=== PATIENT | male | born 1945 | race African-American/Black ===

== ENCOUNTER 2021-10-02 10:34 | Emergency (ER) | payer OTHER, MEDICAID ==
[~2021-10-02] VITALS: Ht 177.8 cm; Wt 109.0 kg
[~2021-10-02 10:34] MED LIST: AMLODIPINE; HUMALOG; LANTUS
[2021-10-02] MEDS ORDERED: TETRACAINE 0.5% OPHTH DROPS 4ML BOTHEYE ONE (11:15)
[2021-10-02 16:00] VITALS: BP 175/81
== END 2021-10-02 18:10 | disposition home or self-care (01) ==
LOC: ER 10:34
DX: H53.132 Sudden visual loss, left eye (principal); E11.319 Type 2 diabetes mellitus with unspecified diabetic retinopathy without macular edema; E11.65 Type 2 diabetes mellitus with hyperglycemia; E11.39 Type 2 diabetes mellitus with other diabetic ophthalmic complication; E11.36 Type 2 diabetes mellitus with diabetic cataract; H42 Glaucoma in diseases classified elsewhere; H26.9 Unspecified cataract; H54.11 Blindness, right eye, low vision left eye; R00.0 Tachycardia, unspecified; Z20.822 Contact with and (suspected) exposure to COVID-19; Z79.84 Long term (current) use of oral hypoglycemic drugs
CPT/HCPCS: 82962; 87426; 99285

== ENCOUNTER 2023-01-21 17:36 | Emergency (ER) | payer MEDICAID, OTHER ==
[~2023-01-21] VITALS: Ht 182.9 cm; Wt 81.0 kg
[2023-01-21] MEDS ORDERED: KETOROLAC 60MG/2ML VIAL IM NR (19:01)
[2023-01-21 19:37] VITALS: BP 138/78
== END 2023-01-21 20:00 | disposition home or self-care (01) ==
LOC: ER 17:36
DX: M25.551 Pain in right hip (principal); E11.9 Type 2 diabetes mellitus without complications; I10 Essential (primary) hypertension
CPT/HCPCS: 73521; 96372; 99283; J1885

== ENCOUNTER 2023-04-09 12:14 | Inpatient (IN) | payer OTHER, MEDICAID ==
[~2023-04-09] VITALS: Ht 182.9 cm; Wt 72.6 kg
[2023-04-09] MEDS ORDERED: SODIUM CHLORIDE 0.9% 1,000 ML IV ONE (13:30)
[2023-04-09 14:31] LABS: BASOPHILS % 0.8 % (0.0-2.0); HEMATOCRIT. 29.5 % (42.0-52.0); HEMOGLOBIN. 9.7 g/dL (14.0-18.0); LYMPHOCYTES % 14.8 % (20.0-50.0); MEAN CORPUSCULAR HEMOGLOBIN 27.5 pg (28.0-32.0); MEAN CORPUSCULAR HGB CONC 32.8 g/dL (31.0-37.0); MEAN CORPUSCULAR VOLUME 83.9 fL (80.0-94.0); MEAN PLATELET VOLUME 6.3 fl (7.4-10.4); MONOCYTES % 7.7 % (2.0-8.0); NEUTROPHILS % 74.7 % (40.0-76.0); PLATELET 538 x1000/uL (130-400); RED BLOOD CELL COUNT 3.51 mill/uL (4.7-6.1); RED CELL DISTRIBUTION WIDTH 16.8 % (11.6-14.6)
[2023-04-09 14:32] LABS: CHLORIDE 107 mEq/L (98-107); INDEX HEMOLYSI 1 (1-3); INDEX ICTERIC 1 (1-4); INDEX LIPEMIC 1 (1-3); POTASSIUM 4.6 mEq/L (3.5-5.1); SODIUM 135 mEq/L (136-145)
[2023-04-09 14:43] LABS: ALANINE AMINOTRANSFERASE 24 IU/L (13-61); ALBUMIN 2.5 g/dL (3.4-5.0); ASPARTATE AMINOTRANSFERASE 20 IU/L (15-37); BILIRUBIN TOTAL 0.3 mg/dL (0.1-1.0); CARBON DIOXIDE 21 mEq/L (21-32); CREATININE 1.3 mg/dL (0.6-1.3); GLUCOSE 115 mg/dL (70-105); NT PRO B-TYPE NATRIURETIC PEP 839 pg/mL (5-125); PROTEIN TOTAL 7.9 g/dL (6.0-8.3); TROPONIN I HIGH SENSITIVITY 10 ng/L (<78); UREA NITROGEN BLOOD 20 mg/dL (7-21)
[2023-04-09 14:57] LABS: CALCIUM 5.3 mg/dL (8.5-10.1)
[2023-04-09] MEDS ORDERED: CALCIUM GLUCONATE 100MG/ML 10ML VIAL IV ONE (15:15)
[2023-04-09] MEDS ORDERED: ASPIRIN 325MG EC TABLET PO ONE (15:30)
[2023-04-09] MEDS ORDERED: ONDANSETRON HCL 4MG/2ML INJ IV PRN (17:30)
[2023-04-09] MEDS ORDERED: ACETAMINOPHEN 325MG TABLET PO PRN (17:30)
[2023-04-09 18:58] LABS: CLARITY URINE CLEAR (CLEAR); COLOR URINE YELLOW (YELLOW); GLUCOSE URINE NEGATIVE (NEGATIVE); KETONES URINE NEGATIVE (NEGATIVE); LEUKOCYTE ESTERASE URINE NEGATIVE (NEGATIVE); NITRITE URINE NEGATIVE (NEGATIVE); OCCULT BLOOD URINE NEGATIVE (NEGATIVE); PH URINE 5.5 (4.5-8.0); PROTEIN URINE 1+ (NEGATIVE); SPECIFIC GRAVITY URINE 1.007 (1.005-1.030); UROBILINOGEN URINE 0.2 E.U./dL (0.2-1.0)
[2023-04-09 18:59] LABS: WBC URINE NONE SEEN /hpf (0-2); YEAST URINE NONE SEEN
[2023-04-09 19:26] LABS: BACTERIA URINE TRACE; RBC URINE NONE SEEN /hpf (0-2); SQUAMOUS EPITHELIAL CELL URINE RARE /lpf (RARE/1+)
[2023-04-09 23:00] VITALS: BP 150/80; PULSE 92; RESP 20; TEMP 98.6
[2023-04-10] VITALS: BP 145/60; PULSE 100; RESP 18; TEMP 98.2
[2023-04-10 04:00] VITALS: BP 160/80; PULSE 90; RESP 18; TEMP 97.8
[2023-04-10 06:58] LABS: BASOPHILS % 0.8 % (0.0-2.0); EOSINOPHILS % 3.1 % (0.0-5.0); HEMATOCRIT. 26.6 % (42.0-52.0); LYMPHOCYTES % 21.6 % (20.0-50.0); MEAN CORPUSCULAR HEMOGLOBIN 28.4 pg (28.0-32.0); MEAN CORPUSCULAR VOLUME 83.3 fL (80.0-94.0); MEAN PLATELET VOLUME 6.6 fl (7.4-10.4); MONOCYTES % 8.1 % (2.0-8.0); NEUTROPHILS % 66.4 % (40.0-76.0); PLATELET 510 x1000/uL (130-400); RED BLOOD CELL COUNT 3.19 mill/uL (4.7-6.1); RED CELL DISTRIBUTION WIDTH 17.1 % (11.6-14.6); WHITE BLOOD COUNT 8.6 x1000/uL (4.5-11.0)
[2023-04-10 07:52] LABS: CHLORIDE 114 mEq/L (98-107); INDEX HEMOLYSI 1 (1-3); INDEX ICTERIC 1 (1-4); INDEX LIPEMIC 1 (1-3); POTASSIUM 4.2 mEq/L (3.5-5.1); SODIUM 138 mEq/L (136-145)
[2023-04-10 07:57] LABS: CARBON DIOXIDE 19 mEq/L (21-32); CREATININE 1.3 mg/dL (0.6-1.3); GLUCOSE 94 mg/dL (70-105); UREA NITROGEN BLOOD 15 mg/dL (7-21)
[2023-04-10 08:00] VITALS: BP 171/94; PULSE 105; RESP 20; TEMP 98
[2023-04-10] MEDS ORDERED: CLONIDINE 0.1MG TABLET PO PRN (08:00)
[2023-04-10] MEDS ORDERED: DEXTROSE 50% WATER 50ML SYRINGE IV PRN ×2 (08:00)
[2023-04-10] MEDS ORDERED: MAGNESIUM/ALUMINUM HYDROXIDE/SIMETHICONE 30ML UDC PO PRN (08:00)
[2023-04-10] MEDS ORDERED: HYDROCODONE/ACETAMINOPHEN 5/325MG TABLET PO PRN (08:00)
[2023-04-10] MEDS ORDERED: ONDANSETRON HCL 4MG/2ML INJ IV PRN (08:00)
[2023-04-10 08:35] LABS: CALCIUM 5.2 mg/dL (8.5-10.1)
[2023-04-10] MEDS: ENOXAPARIN 40MG/0.4ML SYR SUBCUT SCH (09:50)
[2023-04-10 12:00] VITALS: BP 145/73; PULSE 103; RESP 20; TEMP 98
[2023-04-10] MEDS: BLOOD SUGAR DIAGNOSTIC STRIP TEST SCH ×3 (12:54→21:00)
[2023-04-10] MEDS: INSULIN LISPRO 100 UNITS/ML SUBCUT SCH ×3 (13:04→21:00)
[2023-04-10] MEDS ORDERED: CALCIUM GLUCONATE 1,000 MG in DEXT 5% WATER 90 ML IV ONE (13:45)
[2023-04-10] MEDS ORDERED: CALCIUM GLUCONATE 1GM PREMIX 50 ML IV SCH (15:00)
[2023-04-10 16:00] VITALS: BP 125/67; PULSE 92; RESP 20; TEMP 98.1
[2023-04-10] MEDS: AMLODIPINE 10MG TABLET PO SCH (18:32)
[2023-04-10] MEDS: TAMSULOSIN HCL 0.4MG SR CAPSULE PO SCH (18:33)
[2023-04-10] MEDS ORDERED: TAMS-11 MT (18:36)
[2023-04-10 20:00] VITALS: BP 114/62; PULSE 102; RESP 18; TEMP 97.9
[2023-04-11] VITALS: BP 144/68; PULSE 101; RESP 20; TEMP 97.8
[2023-04-11 04:00] VITALS: BP 128/53; PULSE 95; RESP 20; TEMP 97.3
[2023-04-11] MEDS: OMEPRAZOLE 20MG CAPSULE EXTENDED RELEASE PO SCH (07:31)
[2023-04-11] MEDS: BLOOD SUGAR DIAGNOSTIC STRIP TEST SCH ×4 (07:31→21:00)
[2023-04-11] MEDS: INSULIN LISPRO 100 UNITS/ML SUBCUT SCH ×4 (07:45→21:00)
[2023-04-11 08:00] VITALS: BP 131/68; PULSE 101; RESP 20; TEMP 97.2
[2023-04-11 08:16] LABS: BASOPHILS % 0.8 % (0.0-2.0); EOSINOPHILS % 3.2 % (0.0-5.0); HEMATOCRIT. 25.1 % (42.0-52.0); HEMOGLOBIN. 8.4 g/dL (14.0-18.0); LYMPHOCYTES % 20.7 % (20.0-50.0); MEAN CORPUSCULAR HEMOGLOBIN 27.9 pg (28.0-32.0); MEAN CORPUSCULAR HGB CONC 33.3 g/dL (31.0-37.0); MEAN CORPUSCULAR VOLUME 83.7 fL (80.0-94.0); MEAN PLATELET VOLUME 6.5 fl (7.4-10.4); MONOCYTES % 9.4 % (2.0-8.0); NEUTROPHILS % 65.9 % (40.0-76.0); PLATELET 468 x1000/uL (130-400); RED CELL DISTRIBUTION WIDTH 17.2 % (11.6-14.6); WHITE BLOOD COUNT 8.8 x1000/uL (4.5-11.0)
[2023-04-11 08:26] LABS: CHLORIDE 111 mEq/L (98-107); INDEX HEMOLYSI 1 (1-3); INDEX ICTERIC 1 (1-4); INDEX LIPEMIC 1 (1-3); POTASSIUM 4.1 mEq/L (3.5-5.1); SODIUM 137 mEq/L (136-145)
[2023-04-11 08:38] LABS: ALANINE AMINOTRANSFERASE 20 IU/L (13-61); ALBUMIN 2.3 g/dL (3.4-5.0); ASPARTATE AMINOTRANSFERASE 14 IU/L (15-37); BILIRUBIN DIRECT < 0.1 mg/dL (0.0-0.2); BILIRUBIN TOTAL 0.5 mg/dL (0.1-1.0); CARBON DIOXIDE 19 mEq/L (21-32); CHOLESTEROL 131 mg/dL (<200); CREATININE 1.3 mg/dL (0.6-1.3); GLUCOSE 193 mg/dL (70-105); HDL CHOLESTEROL 44 mg/dL (40-59); LDL CHOLESTEROL 74 mg/dL (5-100); PHOSPHORUS 2.4 mg/dL (2.5-4.9); PROTEIN TOTAL 6.7 g/dL (6.0-8.3); T4 FREE 1.06 ng/dL (0.76-1.46); TRIGLYCERIDE 84 mg/dL (0-150); TROPONIN I HIGH SENSITIVITY 13 ng/L (<78); UREA NITROGEN BLOOD 16 mg/dL (7-21)
[2023-04-11 09:04] LABS: CALCIUM 5.3 mg/dL (8.5-10.1)
[2023-04-11] MEDS: ENOXAPARIN 40MG/0.4ML SYR SUBCUT SCH (09:06)
[2023-04-11] MEDS: TAMSULOSIN HCL 0.4MG SR CAPSULE PO SCH (09:06)
[2023-04-11] MEDS: AMLODIPINE 10MG TABLET PO SCH (09:06)
[2023-04-11] MEDS ORDERED: CALCIUM GLUCONATE 1GM PREMIX 50 ML IV NR (11:30)
[2023-04-11 12:00] VITALS: BP 138/65; PULSE 104; RESP 20; TEMP 97.3
[2023-04-11 16:00] VITALS: BP_SYST 139; BP_DIAS 27; BP_DIAS 69; PULSE 108; RESP 20; TEMP 96.9
[2023-04-11 20:00] VITALS: BP 128/63; PULSE 102; RESP 18; TEMP 99.7
[2023-04-12] VITALS: BP 141/72; PULSE 97; RESP 17; TEMP 98
[2023-04-12 04:00] VITALS: BP 142/71; PULSE 101; RESP 18; TEMP 98.4
[2023-04-12] MEDS: OMEPRAZOLE 20MG CAPSULE EXTENDED RELEASE PO SCH (06:15)
[2023-04-12] MEDS: BLOOD SUGAR DIAGNOSTIC STRIP TEST SCH ×5 (06:18→23:37)
[2023-04-12] MEDS: INSULIN LISPRO 100 UNITS/ML SUBCUT SCH ×4 (06:38→22:46)
[2023-04-12 07:25] LABS: BASOPHILS % 0.9 % (0.0-2.0); EOSINOPHILS % 3.6 % (0.0-5.0); HEMATOCRIT. 24.6 % (42.0-52.0); HEMOGLOBIN. 8.2 g/dL (14.0-18.0); LYMPHOCYTES % 20.1 % (20.0-50.0); MEAN CORPUSCULAR HEMOGLOBIN 27.8 pg (28.0-32.0); MEAN CORPUSCULAR HGB CONC 33.3 g/dL (31.0-37.0); MEAN CORPUSCULAR VOLUME 83.4 fL (80.0-94.0); MEAN PLATELET VOLUME 6.6 fl (7.4-10.4); MONOCYTES % 9.6 % (2.0-8.0); NEUTROPHILS % 65.8 % (40.0-76.0); PLATELET 459 x1000/uL (130-400); RED BLOOD CELL COUNT 2.95 mill/uL (4.7-6.1); RED CELL DISTRIBUTION WIDTH 17.3 % (11.6-14.6); WHITE BLOOD COUNT 8.4 x1000/uL (4.5-11.0)
[2023-04-12 08:00] VITALS: BP 122/58; PULSE 96; RESP 18; TEMP 98.1
[2023-04-12] MEDS: ENOXAPARIN 40MG/0.4ML SYR SUBCUT SCH (08:41)
[2023-04-12] MEDS: TAMSULOSIN HCL 0.4MG SR CAPSULE PO SCH (08:41)
[2023-04-12] MEDS: AMLODIPINE 10MG TABLET PO SCH (08:41)
[2023-04-12 08:58] LABS: CARBON DIOXIDE 21 mEq/L (21-32); GLUCOSE 172 mg/dL (70-105); INDEX HEMOLYSI 1 (1-3); INDEX ICTERIC 1 (1-4); INDEX LIPEMIC 1 (1-3); UREA NITROGEN BLOOD 14 mg/dL (7-21)
[2023-04-12 09:04] LABS: CHLORIDE 111 mEq/L (98-107); CREATININE 1.3 mg/dL (0.6-1.3); PHOSPHORUS 2.5 mg/dL (2.5-4.9); POTASSIUM 4.3 mEq/L (3.5-5.1); SODIUM 138 mEq/L (136-145)
[2023-04-12 09:14] LABS: CALCIUM 5.4 mg/dL (8.5-10.1)
[2023-04-12] MEDS ORDERED: CALCIUM GLUCONATE 100MG/ML 10ML VIAL IV ONE (09:45)
[2023-04-12] MEDS ORDERED: CALCIUM GLUCONATE 1GM PREMIX 50 ML IV NR (11:00)
[2023-04-12 12:00] VITALS: BP 128/60; PULSE 97; RESP 18; TEMP 97.6
[2023-04-12 16:00] VITALS: BP 117/64; PULSE 101; RESP 18; TEMP 97.9
[2023-04-12 20:00] VITALS: BP 122/52; PULSE 95; RESP 20; TEMP 97.7
[2023-04-13] VITALS: BP 111/64; PULSE 92; RESP 20; TEMP 97.5
[2023-04-13 00:16] VITALS: BP 111/64; PULSE 92; TEMP 97.5; O2SAT 96
[2023-04-13] MEDS ORDERED: FAMOTIDINE 20MG TABLET PO SCH (09:00)
[2023-04-13] MEDS ORDERED: CALCIUM 1250MG TABLET (500MG ELEMENTAL CALCIUM) PO SCH (09:00)
[2023-04-16 20:00] VITALS: BP 140/59; PULSE 73; RESP 17; TEMP 97.7
== END 2023-04-13 00:30 | disposition short-term general hospital (02) | DRG 73 ==
LOC: ER 12:14 → 8WST 16:48 → EDBEDREQTM 16:53 → EDBEDREQ 16:53
PROVIDERS: ADMIT Family Medicine Adult Medicine; ATTEND Family Medicine Adult Medicine
DX: G90.8 Other disorders of autonomic nervous system (principal); E43 Unspecified severe protein-calorie malnutrition; J98.11 Atelectasis; C79.89 Secondary malignant neoplasm of other specified sites; C61 Malignant neoplasm of prostate; H54.8 Legal blindness, as defined in USA; Z20.822 Contact with and (suspected) exposure to COVID-19; E11.9 Type 2 diabetes mellitus without complications; I10 Essential (primary) hypertension; D64.9 Anemia, unspecified; E83.51 Hypocalcemia; E78.00 Pure hypercholesterolemia, unspecified; Z68.21 Body mass index [BMI] 21.0-21.9, adult; Z86.73 Personal history of transient ischemic attack (TIA), and cerebral infarction without residual deficits; W18.30XA Fall on same level, unspecified, initial encounter; Y93.89 Activity, other specified; Y92.89 Other specified places as the place of occurrence of the external cause; Y99.8 Other external cause status
CPT/HCPCS: 36415; 70551; 71045; 72192; 73700; 80048; 80053; 80061; 80076; 81003; 82330; 82962; 83036; 83735; 83880; 83970; 84100; 84439; 84443; 84484; 85025; 87426; 93005; 93880; 93970; 97162; 99285; J0610; J1650; J1815; J7030

== ENCOUNTER 2023-05-27 11:02 | Emergency (ER) | payer MEDICAID, OTHER ==
[~2023-05-27] VITALS: Ht 175.3 cm; Wt 78.0 kg
[~2023-05-27 11:02] MED LIST changes: +TAMS-11 MT
[2023-05-27 11:04] VITALS: O2SAT 100
[2023-05-27 12:45] LABS: BASOPHILS % 0.7 % (0.0-2.0); EOSINOPHILS % 2.9 % (0.0-5.0); HEMATOCRIT. 24.2 % (42.0-52.0); HEMOGLOBIN. 7.9 g/dL (14.0-18.0); LYMPHOCYTES % 16.3 % (20.0-50.0); MEAN CORPUSCULAR HEMOGLOBIN 28.5 pg (28.0-32.0); MEAN CORPUSCULAR HGB CONC 32.9 g/dL (31.0-37.0); MEAN CORPUSCULAR VOLUME 86.7 fL (80.0-94.0); MEAN PLATELET VOLUME 7.9 fl (7.4-10.4); MONOCYTES % 7.6 % (2.0-8.0); NEUTROPHILS % 72.5 % (40.0-76.0); PLATELET 292 x1000/uL (130-400); RED BLOOD CELL COUNT 2.79 mill/uL (4.7-6.1); RED CELL DISTRIBUTION WIDTH 19.5 % (11.6-14.6); WHITE BLOOD COUNT 8.4 x1000/uL (4.5-11.0)
[2023-05-27 13:05] LABS: CHLORIDE 109 mEq/L (98-107); INDEX HEMOLYSI 1 (1-3); INDEX ICTERIC 1 (1-4); INDEX LIPEMIC 1 (1-3); POTASSIUM 4.2 mEq/L (3.5-5.1); SODIUM 138 mEq/L (136-145)
[2023-05-27 13:16] LABS: ALANINE AMINOTRANSFERASE 16 IU/L (13-61); ASPARTATE AMINOTRANSFERASE 14 IU/L (15-37); BILIRUBIN TOTAL 0.5 mg/dL (0.1-1.0); CARBON DIOXIDE 18 mEq/L (21-32); CREATINE KINASE 256 IU/L (39-308); CREATINE KINASE MB FRACTION 1.8 ng/mL (0.5-3.6); CREATININE 1.6 mg/dL (0.6-1.3); GLUCOSE 329 mg/dL (70-105); TROPONIN I HIGH SENSITIVITY 12 ng/L (<78); UREA NITROGEN BLOOD 34 mg/dL (7-21)
[2023-05-27 13:17] LABS: CALCIUM <5.0 mg/dL mg/dL (8.5-10.1)
[2023-05-27] MEDS ORDERED: CALCIUM GLUCONATE 100MG/ML 10ML VIAL IV ONE (13:30)
[2023-05-27 18:09] VITALS: BP 169/89; PULSE 83; RESP 13; TEMP 97.9
== END 2023-05-27 17:50 | disposition short-term general hospital (02) ==
LOC: ER 11:02 → CANBEDREQ 14:07 → ER 17:50
DX: M25.562 Pain in left knee (principal); M25.561 Pain in right knee; M25.551 Pain in right hip; M25.552 Pain in left hip; R51.9 Headache, unspecified; E11.9 Type 2 diabetes mellitus without complications; E78.00 Pure hypercholesterolemia, unspecified; I10 Essential (primary) hypertension; Z98.890 Other specified postprocedural states; W01.0XXA Fall on same level from slipping, tripping and stumbling without subsequent striking against object, initial encounter; Y93.89 Activity, other specified; Y92.89 Other specified places as the place of occurrence of the external cause; Y99.8 Other external cause status
CPT/HCPCS: 80053; 82550; 82553; 85025; 84484; 36415; 72170; 73560; 70450; 96374; 99285; 87426; J0610; C9803

== ENCOUNTER 2024-08-17 21:38 | Emergency (ER) | payer OTHER ==
[~2024-08-17] VITALS: Ht 175.3 cm; Wt 99.0 kg
[2024-08-17 21:39] VITALS: O2SAT 100
[2024-08-18] MEDS: DOCUSATE SODIUM 100MG CAPSULE PO ONE (01:49)
[2024-08-18] MEDS: POLYETHYLENE GLYCOL 3350 (17GM) 1 DOSE PACK PO ONE (01:49)
[2024-08-18] MEDS ORDERED: POLY17PO3 MT (03:19)
[2024-08-18 03:33] VITALS: BP 95/63; PULSE 86; RESP 20; TEMP 36.83628; O2SAT 100
== END 2024-08-18 03:35 | disposition home or self-care (01) ==
LOC: ER 21:38
DX: K59.09 Other constipation (principal); E11.9 Type 2 diabetes mellitus without complications; I10 Essential (primary) hypertension; Z79.899 Other long term (current) drug therapy
CPT/HCPCS: 99283

== ENCOUNTER 2024-10-24 01:34 | Emergency (ER) | payer OTHER ==
[~2024-10-24] VITALS: Ht 170.2 cm; Wt 91.0 kg
[~2024-10-24 01:34] MED LIST changes: +POLY17PO3 MT
[2024-10-24 01:36] VITALS: TEMP 37.2; O2SAT 100
[2024-10-24 04:15] VITALS: BP 157/70; PULSE 100; RESP 16
[2024-10-24] MEDS: KETOROLAC 30MG/ML VIAL IM ONE (04:15)
[2024-10-24 04:42] VITALS: TEMP 98.9
[2024-10-24] MEDS: ACETAMINOPHEN 325MG TABLET PO ONE (04:42)
[2024-10-24] MEDS ORDERED: IBUP-2029 MT (06:49)
== END 2024-10-24 07:09 | disposition home or self-care (01) ==
LOC: ER 01:34
DX: M79.672 Pain in left foot (principal); E11.9 Type 2 diabetes mellitus without complications; I10 Essential (primary) hypertension; Z79.899 Other long term (current) drug therapy
CPT/HCPCS: 99283; 73630; 96372; J1885